=== PATIENT | male | born 1960 | race Caucasian/White ===

== ENCOUNTER 2022-02-28 12:46 | Inpatient (IN) | payer OTHER ==
[~2022-02-28] VITALS: Ht 180.3 cm; Wt 82.0 kg
--- NOTE | 2022-02-28 13:10 | ED General ---
General Stated Complaint: R SHOULDER PAIN Source of Information: Patient Exam Limitations: No Limitations History of Present Illness Date Seen by Provider: February 28, 2022 Time Seen by Provider: 13:10 Initial Comments Patient is a 61-year-old male with a history of lung cancer with metastasis to the bone who presents ED for pain control. Dr. Orellana patient hospice provider called to the ER recommending admission and discuss HOURLY SHIFT MANAGER pump for better pain control. Currently on morphine, and oxycodone, Flexeril, fentanyl without much pain improvement. Pain to his mid upper back with radiation weakness to the right arm. Described as sharp pain. Currently being managed by Dr. Aviles oncology at [place] and has had 5 sessions of radiation. Not currently on chemotherapy. Patient has no fever, vomiting, diarrhea, chest pain, shortness of breath. Allergies and Home Medications Allergies Coded Allergies: No Known Drug Allergies (Unverified , 02/28/22) Patient Home Medication List Home Medication List Reviewed: Yes Review of Systems Review of Systems Constitutional: No chills, No diaphoresis, No malaise, No weakness EENTM: No blurred vision, No double vision Respiratory: No cough, No dyspnea on exertion Cardiovascular: No chest pain Gastrointestinal: No abdominal pain, No diarrhea, No nausea, No vomiting Genitourinary: No decreased output, No discharge Musculoskeletal: back pain; No joint pain; neck pain Skin: No change in color All Other Systems Reviewed Negative Unless Noted: Yes Physical Exam Vital Signs Vital Signs - First Documented 02/28/22 13:03 Temp 35.8 Pulse 112 Resp 18 B/P (MAP) 137/89 (105) Pulse Ox 99 O2 Delivery Room Air Capillary Refill : Height, Weight, BMI Height: '" Weight: lbs. oz. kg; BMI Method: General Appearance: No Apparent Distress, WD/WN Eyes: Bilateral Eye Normal Inspection, Bilateral Eye PERRL, Bilateral Eye EOMI HEENT: PERRL/EOMI, TMs Normal, Normal ENT Inspection Neck: Full Range of Motion, Normal Inspection, Supple, Other (Cervical midline tenderness) Respiratory: Chest Non Tender, Lungs Clear, Normal Breath Sounds, No Accessory Muscle Use, No Respiratory Distress Cardiovascular: Regular Rate, Rhythm, No Edema, No Gallop, No JVD Gastrointestinal: Normal Bowel Sounds, No Organomegaly, No Pulsatile Mass, Non Tender Back: Vertebral Tenderness (Thoracic and cervical midline tenderness.) Extremity: Other (Principal Investigator strength right hand 4 out of 5 with cotton dispatcher strength left hand 5 out of 5. Normal active range of motion right arm) Neurologic/Psychiatric: Alert, Oriented x3, No Motor/Sensory Deficits, Normal Mood/Affect, Other (Neurovascular intact right arm) Skin: Normal Color, Warm/Dry Progress/Results/Core Measures Suspected Sepsis SIRS Temperature: Pulse: Respiratory Rate: Laboratory Tests 02/28/22 13:40: White Blood Count 9.7 Blood Pressure / Mean: Laboratory Tests 02/28/22 13:40: Creatinine 1.18, Platelet Count 160, Total Bilirubin 0.6 Results/Orders Lab Results Laboratory Tests Test 02/28/22 13:40 Range/Units White Blood Count 9.7 4.3-11.0 10^3/uL Red Blood Count 3.45 L 4.30-5.52 10^6/uL Hemoglobin 10.3 L 13.3-17.7 g/dL Hematocrit 30 L 40-54 % Mean Corpuscular Volume 88 80-99 fL Mean Corpuscular Hemoglobin 30 25-34 pg Mean Corpuscular Hemoglobin Concent 34 32-36 g/dL Red Cell Distribution Width 18.3 H 10.0-14.5 % Platelet Count 160 130-400 10^3/uL Mean Platelet Volume 8.4 L 9.0-12.2 fL Immature Granulocyte % (Auto) 6 % Neutrophils (%) (Auto) 76 H 42-75 % Lymphocytes (%) (Auto) 11 L 12-44 % Monocytes (%) (Auto) 6 0-12 % Eosinophils (%) (Auto) 1 0-10 % Basophils (%) (Auto) 0 0-10 % Neutrophils # (Auto) 7.3 1.8-7.8 10^3/uL Lymphocytes # (Auto) 1.1 1.0-4.0 10^3/uL Monocytes # (Auto) 0.6 0.0-1.0 10^3/uL Eosinophils # (Auto) 0.1 0.0-0.3 10^3/uL Basophils # (Auto) 0.0 0.0-0.1 10^3/uL Immature Granulocyte # (Auto) 0.6 H 0.0-0.1 10^3/uL Percent Immature Platelet Fraction 1.1 0.0-7.6 % Sodium Level 138 135-145 MMOL/L Potassium Level 4.2 3.6-5.0 MMOL/L Chloride Level 99 98-107 MMOL/L Carbon Dioxide Level 27 21-32 MMOL/L Anion Gap 12 5-14 MMOL/L Blood Urea Nitrogen 31 H 7-18 MG/DL Creatinine 1.18 0.60-1.30 MG/DL Estimat Glomerular Filtration Rate 71 BUN/Creatinine Ratio 26 Glucose Level 134 H 70-105 MG/DL Calcium Level 11.1 H 8.5-10.1 MG/DL Corrected Calcium 11.0 H 8.5-10.1 MG/DL Total Bilirubin 0.6 0.1-1.0 MG/DL Aspartate Amino Transf (AST/SGOT) 15 5-34 U/L Alanine Aminotransferase (ALT/SGPT) 33 0-55 U/L Alkaline Phosphatase 122 40-136 U/L Total Protein 7.9 6.4-8.2 GM/DL Albumin 4.1 3.2-4.5 GM/DL My Orders Orders - [facility] Cbc With Automated Diff (02/28/22 13:08) Comprehensive Metabolic Panel (02/28/22 13:08) Hydromorphone Injection (Dilaudid Inject (02/28/22 13:15) Ed Admission (Communication) (02/28/22 13:17) Ondansetron Injection (Zofran Injectio (02/28/22 14:00) Hydromorphone Injection (Dilaudid Inject (02/28/22 14:15) Medications Given in ED Current Medications Medications Dose Ordered Sig/Elsa Route Start Time Stop Time Status Last Admin Dose Admin Hydromorphone HCl 1 mg ONCE ONCE IV 02/28/22 13:15 02/28/22 13:16 DC 02/28/22 13:45 1 MG Hydromorphone HCl 1 mg ONCE ONCE IV 02/28/22 14:15 02/28/22 14:16 DC 02/28/22 14:13 1 MG Ondansetron HCl 4 mg ONCE ONCE IVP 02/28/22 14:00 02/28/22 14:01 DC 02/28/22 13:53 4 MG Vital Signs/I&O 02/28/22 02/28/22 13:03 14:16 Temp 35.8 Pulse 112 107 Resp 18 B/P (MAP) 137/89 (105) 123/76 Pulse Ox 99 96 O2 Delivery Room Air Room Air Capillary Refill : Departure Communication (Admissions) Time/Spoke to Admitting Phy: 13:16 Patient was discussed with Dr. Rossi who accepts patient for pain control and for pain pump.. Currently on hospice secondary to lung cancer with metastasis to the bone. Dr. Orellana did not recommend any further imaging at this time of his back. Patient was given 2 mg of IV Dilaudid with significant improvement of his pain. Impression Primary Impression: Lung cancer metastatic to bone Additional Impression: Intractable back pain Disposition: ADMITTED INPATIENT Condition: Stable Admissions Decision to Admit Reason: Admit from ER (General) Decision to Admit/Date: February 28, 2022 Time/Decision to Admit Time: 13:16 Departure-Patient Inst. Referrals: NO,LOCAL PHYSICIAN (PCP/Family) Primary Care Physician [facility] TATE February 28, 2022 13:10
[2022-02-28] MEDS ORDERED: HYDROmorphone 2 MG/ML VIAL (DILAUDID) IV ONE ×2 (13:15→14:15)
[2022-02-28 13:55] LABS: HEMATOCRIT 30 % (40-54); MONOCYTES % (AUTO) 6 % (0-12)
[2022-02-28 13:57] LABS: BASOPHILS % (AUTO) 0 % (0-10); EOSINOPHILS # (AUTO) 0.1 10^3/uL (0.0-0.3); EOSINOPHILS % (AUTO) 1 % (0-10); HEMOGLOBIN 10.3 g/dL (13.3-17.7); LYMPHOCYTES # (AUTO) 1.1 10^3/uL (1.0-4.0); LYMPHOCYTES % (AUTO) 11 % (12-44); MEAN CORPUSCULAR HEMOGLOBIN 30 pg (25-34); MEAN CORPUSCULAR HGB CONC 34 g/dL (32-36); MEAN CORPUSCULAR VOLUME 88 fL (80-99); MEAN PLATELET VOLUME 8.4 fL (9.0-12.2); MONOCYTES # (AUTO) 0.6 10^3/uL (0.0-1.0); NEUTROPHILS # (AUTO) 7.3 10^3/uL (1.8-7.8); NEUTROPHILS % (AUTO) 76 % (42-75); PLATELET COUNT 160 10^3/uL (130-400); WHITE BLOOD COUNT 9.7 10^3/uL (4.3-11.0)
[2022-02-28] MEDS ORDERED: ONDANSETRON 4 MG/2 ML (SDV) Z0FRAN IVP ONE (14:00)
[2022-02-28 14:07] LABS: ALBUMIN 4.1 GM/DL (3.2-4.5); POTASSIUM 4.2 MMOL/L (3.6-5.0)
[2022-02-28 14:09] LABS: CALCIUM 11.1 MG/DL (8.5-10.1)
[2022-02-28 14:10] LABS: TOTAL PROTEIN 7.9 GM/DL (6.4-8.2)
[2022-02-28 14:11] LABS: BILIRUBIN,TOTAL 0.6 MG/DL (0.1-1.0)
[2022-02-28 14:14] LABS: CREATININE SERUM 1.18 MG/DL (0.60-1.30)
[2022-02-28] MEDS ORDERED: PHARMACY TO DOSE PO SCH (16:00)
[2022-02-28] MEDS ORDERED: LACTULOSE SYRUP 10GM/15ML (ENULOSE) 30ML UDC PO PRN (16:00)
[2022-02-28] MEDS ORDERED: CALCIUM CARBONATE 500 MG (TUMS) TAB.CHEW PO PRN (16:00)
[2022-02-28] MEDS ORDERED: diphenhydrAMINE 50 MG/ML INJ (BENADRYL) IV PRN (16:00)
[2022-02-28] MEDS ORDERED: MELATONIN 3 MG TABLET PO PRN (16:00)
[2022-02-28] MEDS ORDERED: METOCLOPRAMIDE INJ 10 MG/2 ML (REGLAN) IV PRN (16:00)
[2022-02-28] MEDS ORDERED: NALOXONE 0.4 MG/ML 1 ML (NARCAN) VIAL IV PRN (16:00)
[2022-02-28] MEDS ORDERED: polyethylene glycoL POWDER 17 GM (MIRALAX) PACK PO PRN (16:00)
[2022-02-28] MEDS ORDERED: ONDANSETRON 4 MG/2 ML (SDV) Z0FRAN IV PRN (16:00)
[2022-02-28] MEDS: NS IV 1000 ML 1,000 ML IV SCH (16:59)
[2022-02-28 17:02] VITALS: BP 123/76
[2022-02-28] MEDS ORDERED: RT-ALBUTEROL SULF 2.5 MG/3 ML PRE-MIX VIAL INH PRN (17:15)
[2022-02-28 19:12] VITALS: BP 121/79
[2022-02-28] MEDS: SENNOSIDES 8.6 MG (SENOKOT) TAB PO SCH (20:26)
[2022-02-28] MEDS: DOCUSATE SODIUM 100 MG (COLACE) CAP PO SCH (20:26)
[2022-02-28] MEDS: HYDROmorphone PCA 20 MG/100 ML NS IV PRN (21:07)
[2022-02-28 23:38] VITALS: BP 122/65
[2022-03-01 04:19] VITALS: BP 134/82
[2022-03-01 07:16] VITALS: BP 147/90
[2022-03-01] MEDS: SENNOSIDES 8.6 MG (SENOKOT) TAB PO SCH ×2 (08:11→19:43)
[2022-03-01] MEDS: DOCUSATE SODIUM 100 MG (COLACE) CAP PO SCH ×2 (08:11→19:43)
[2022-03-01] MEDS ORDERED: oxyCODONE ER 20 MG (OxyCONTIN CR) TAB PO SCH (09:15)
[2022-03-01] MEDS ORDERED: FENT1PAT11 (09:16)
[2022-03-01] MEDS ORDERED: OXYC20TA3 PO (09:16)
[2022-03-01] MEDS ORDERED: FENT1PAT9 (09:16)
[2022-03-01] MEDS: fentaNYL PATCH 100 MCG (DURAGESIC) TD SCH (09:33)
[2022-03-01] MEDS: fentaNYL PATCH 50 MCG (DURAGESIC) TD SCH (09:33)
--- NOTE | 2022-03-01 10:02 | History & Physical-Hospitalist ---
History of Present Illness HPI/Chief Complaint Patient is a 61-year-old male with past medical history of metastatic lung cancer who presented to the ER due to intractable pain. He is a patient of hospice come [facility] and had previously been treated with multiple oral options and transdermal fentanyl patches for pain control without adequate relief. He does report a history of drug addiction in his remote past. He was previously on hydrocodone and increase to oxycodone and OxyContin when that quit working. Recently they had placed a fentanyl patch which worked for a while but now he is having increasing pain in his right groin and right shoulder. He was admitted overnight for a Dilaudid CHARGE OPERATOR and had adequate control overnight but this morning is very uncomfortable. Discussed plan to replace fentanyl patch and increase CHARGE OPERATOR dosing if needed. Source: patient Date Seen 03/01/22 Time Seen by a Provider: 09:15 Attending Physician No,Local Physician PCP Admitting Physician: Licha Rossi MD Attending Physician: Licha Rossi MD Referring Physician Date of Admission February 28, 2022 at 13:18 Home Medications & Allergies Home Medications Reviewed patient Home Medication Reconciliation performed by pharmacy medication reconciliations coordinate measuring machine technician and/or nursing. Patients Allergies have been reviewed. Allergies Allergies Coded Allergies No Known Drug Allergies (Unverified02/28/22) Past Yxsuxfs-Btkyvq-[id number] Hx Patient Social History Tobacco Use?: Yes Tobacco type used: Cigarettes Smoking Status: Current Everyday Smoker Smokeless Tobacco Frequency: Never a User Use of E-Cig and/or Vaping dev: No Substance use?: No (history of abuse) Substance type: Marijuana Substance frequency: Daily Alcohol Use?: Yes Alcohol type: Beer Alcohol Frequency: Couple times a week Pt feels they are or have been: No Immunizations Up To Date First/Initial COVID19 Vaccinat: N/A Second COVID19 Vaccination Magdi: N/A Tetanus Booster (TDap): Unknown Hepatitis A: No Hepatitis B: No Current Status Advance Directives: Yes Advance Directive Location: Home Communicates: Verbally Primary Language: [place] Preferred Spoken Language: [place] Is interpretation needed?: No Implanted or Applied Medical D: None Past Medical History Lung Did You Recieve Any Treatments: Yes Family Medical History Reviewed Nursing Family Hx No Pertinent Family Hx Review of Systems Constitutional: No chills, No fever EENTM: no symptoms reported Respiratory: no symptoms reported Cardiovascular: no symptoms reported Gastrointestinal: No constipation Genitourinary: no symptoms reported Musculoskeletal: see HPI, back pain, joint pain Skin: no symptoms reported Psychiatric/Neurological: No Symptoms Reported Physical Exam Physical Exam Vital Signs Vital Signs - First Documented 02/28/22 03/01/22 13:03 08:29 Temp 35.8 Pulse 112 Resp 18 B/P (MAP) 137/89 (105) Pulse Ox 99 O2 Delivery Room Air O2 Flow Rate 0.00 Capillary Refill : Less Than 3 Seconds Height, Weight, BMI Height: '" Weight: lbs. oz. kg; 25.22 BMI Method: General Appearance: No Apparent Distress, WD/WN HEENT: PERRL/EOMI, Moist Mucous Membranes Respiratory: Lungs Clear, No Accessory Muscle Use, No Respiratory Distress Cardiovascular: Regular Rate, Rhythm, No Murmur Gastrointestinal: Normal Bowel Sounds, Non Tender, Soft Extremity: Normal Inspection, No Pedal Edema Neurologic/Psychiatric: Alert, Oriented x3, Normal Mood/Affect Results Results/Procedures Labs Patient resulted labs reviewed. Assessment/Plan Admission Diagnosis Intractable pain Admission Status: Inpatient Order (span 2 midnights) Reason for Inpatient Admission: Gip admission for uncontrolled pain and symptom management Assessment and Plan Intractable pain from bony mets Metastatic lung cancer Hospice patient Failed outpatient management with oral oxycodone, morphine, and fentanyl patch Dilaudid CHARGE OPERATOR started, titrate up to symptom control Fentanyl patch replaced DC Oxycontin as has tried before with no help Discussed with RN and will maintain fentanyl patch and just increase CHARGE OPERATOR to leave just one variable Discussed yesterday with Dr Orellana- hospice [facility] medical transcription supervisor, will plan to for CHARGE OPERATOR at home upon discharge Diagnosis/Problems Diagnosis/Problems (1) Admission for hospice care (2) Inadequate pain control (3) Lung cancer metastatic to bone (4) Intractable back pain Status: Acute LICHA ROSSI MD March 01, 2022 10:02
[2022-03-01 10:24] VITALS: BP 144/81
[2022-03-01] MEDS: HYDROmorphone PCA 20 MG/100 ML NS IV PRN ×3 (10:40→19:42)
[2022-03-01] MEDS: SENNA W/DOCUSATE (SENOKOT S) TABLET PO SCH (10:44)
[2022-03-01 11:29] VITALS: BP 115/64
[2022-03-01] MEDS ORDERED: IBUPROFEN TABLET 200 MG TAB PO ONE (14:57)
[2022-03-01] MEDS: NS IV 1000 ML 1,000 ML IV SCH (15:02)
[2022-03-01 15:26] VITALS: BP 137/83
[2022-03-01] MEDS ORDERED: NALO25TA PO (15:48)
[2022-03-01] MEDS ORDERED: MORP100S7 PO (15:48)
[2022-03-01] MEDS ORDERED: OXYC5TAB PO (15:48)
[2022-03-01] MEDS ORDERED: DEXA4TAB PO (15:48)
[2022-03-01] MEDS ORDERED: METF-397 PO (15:48)
[2022-03-01] MEDS ORDERED: PANT40TA52 PO (15:48)
[2022-03-01] MEDS ORDERED: TMSL.4C PO (15:48)
[2022-03-01] MEDS ORDERED: ONDA4TAB11 SL (15:48)
[2022-03-01] MEDS ORDERED: LORAZ30SOL PO (15:48)
[2022-03-01] MEDS ORDERED: LISI10TA25 PO (15:48)
[2022-03-01] MEDS ORDERED: DIAZ5TAB49 PO (15:48)
[2022-03-01] MEDS ORDERED: AMLO5TAB4 PO (15:48)
[2022-03-01] MEDS ORDERED: IBUPROFEN 800 MG (MOTRIN) TAB PO SCH (18:00)
[2022-03-01 19:29] VITALS: BP 131/76
[2022-03-02 00:18] VITALS: BP 131/76
[2022-03-02] MEDS: HYDROmorphone PCA 20 MG/100 ML NS IV PRN ×6 (01:51→23:03)
[2022-03-02 04:13] VITALS: BP 129/77
[2022-03-02] MEDS ORDERED: HYDROmorphone (DILAUDID) 4 MG TAB PO PRN (05:15)
[2022-03-02 07:34] VITALS: BP 130/79
[2022-03-02] MEDS: DOCUSATE SODIUM 100 MG (COLACE) CAP PO SCH ×2 (08:25→20:01)
[2022-03-02] MEDS: SENNOSIDES 8.6 MG (SENOKOT) TAB PO SCH ×2 (08:25→20:02)
[2022-03-02] MEDS: IBUPROFEN 800 MG (MOTRIN) TAB PO PRN ×2 (08:35→17:46)
[2022-03-02] MEDS: SENNA W/DOCUSATE (SENOKOT S) TABLET PO SCH (09:18)
[2022-03-02] MEDS ORDERED: HYDROmorphone 2 MG/ML VIAL (DILAUDID) ONE (10:49)
[2022-03-02] MEDS ORDERED: HYDROmorphone 2 MG/ML VIAL (DILAUDID) IV ONE (11:00)
[2022-03-02] MEDS ORDERED: [UNRECOGNIZED DRUG - CODE] IV (11:26)
[2022-03-02 11:34] VITALS: BP 152/82
--- NOTE | 2022-03-02 11:35 | CONSULTATION REPORT ---
DATE OF SERVICE: 03/02/2022 HISTORY OF PRESENT ILLNESS: The patient is a 61-year-old male with a history of metastatic lung cancer, who presented to the Emergency Department due to intractable pain. The patient is on hospice and has been treated with multiple oral pain medications as well as transdermal fentanyl patch without adequate relief. He does have a history of a drug addiction in the remote past and does have a very poor peripheral venous circulation. He was admitted and started on Dilaudid SUPPLY CHAIN ASSISTANT; however, has lost his IV access. PAST MEDICAL HISTORY: History of metastatic lung cancer, hypertension, gastroesophageal reflux disease, benign prostatic hypertrophy. PAST SURGICAL HISTORY: None known. ALLERGIES: No known drug allergies. MEDICATIONS: Amlodipine 5 mg daily, dexamethasone 4 mg daily, diazepam 5 mg daily, fentanyl patch 100 mcg every third day, lisinopril 10 mg daily, lorazepam 2 mg q.4 hours p.r.n., morphine 20 mg q.2 hours p.r.n., Zofran 4 mg q.6 hours p.r.n., oxycodone 5 mg q.4 hours p.r.n., Protonix 40 mg daily, tamsulosin 0.4 mg b.i.d. SOCIAL HISTORY: Positive smoke. Positive marijuana. He does drink alcohol a few times a week. FAMILY HISTORY: Noncontributory. VITAL SIGNS: Temperature 36.4, blood pressure 130/79, pulse 93, respirations 20, pulse ox 96% on room air. REVIEW OF SYSTEMS: A well-nourished male currently with pain secondary to a bone metastasis. He is not experiencing any shortness of breath or any new cough or sputum production. Intermittent episodes of nausea, no vomiting, chronic constipation, no red blood per rectum, no dark tarry stools. No fever, chills with some weight loss in the past few months. PHYSICAL EXAMINATION: CHEST: Scattered wheezes and rhonchi bilaterally. HEART: Regular, no murmurs. EXTREMITIES: No lower extremity edema, negative Homans sign. HEENT: No scleral icterus. NECK: No cervical lymphadenopathy. ABDOMEN: Soft, nontender, nondistended. SKIN: Warm, dry. ASSESSMENT AND PLAN: A 61-year-old male with a metastatic lung cancer with uncontrolled pain with poor peripheral venous circulation and will require IV access for IV pain medication and we will proceed with placement of a central venous catheter. Job ID: [id number] DocumentID: [id number] Dictated Date: 03/02/2022 10:28:20 Precinct Commanding Officer Date: 03/02/2022 11:34:07 Dictated By: TYLER CRUMP MD [facility]
--- NOTE | 2022-03-02 11:44 | Diagnostic Imaging Report ---
CLINICAL INDICATIONS: Patient with central line placement. EXAM: Portable chest x-ray upright view. COMPARISON: None. FINDINGS: Left PICC line is seen with tip overlying the upper superior region. Lungs/pleura: There are patchy opacities involving the periphery of the right upper lobe and left lung. There is no pneumothorax. There is no pleural effusion. Mediastinum: Unremarkable. Pulmonary vasculature: Unremarkable. Heart: Unremarkable. Bones/extrathoracic soft tissue: There are degenerative spurs involving the spine. IMPRESSION: 1: Left PICC line is seen with tip overlying the upper superior vena cava. 2: There are patchy airspace opacities involving the peripheral right upper lobe and left lung. These findings may be related to infectious inflammatory process. Comparison to prior chest x-rays, if available would help better evaluate. Dictated by: Dictated on workstation # [id number]
--- NOTE | 2022-03-02 12:05 | Progress Note - Hospitalist ---
Subjective HPI/CC On Admission Date Seen by Provider: March 02, 2022 Patient is a 61-year-old male with past medical history of metastatic lung cancer who presented to the ER due to intractable pain. He is a patient of [facility] and had previously been treated with multiple oral options and transdermal fentanyl patches for pain control without adequate relief. He does report a history of drug addiction in his remote past. He was previously on hydrocodone and increase to oxycodone and OxyContin when that quit working. Recently they had placed a fentanyl patch which worked for a while but now he is having increasing pain in his right groin and right shoulder. He was admitted overnight for a Dilaudid CLINICAL ADVISOR and had adequate control overnight but this morning is very uncomfortable. Discussed plan to replace fentanyl patch and increase CLINICAL ADVISOR dosing if needed. Subjective/Events-last exam Patient reports doing well. Pain is now controlled with current CLINICAL ADVISOR settings. He is actually requesting discharge home. We discussed the complicating factors of arranging CLINICAL ADVISOR and home on a holiday weekend but that if hospice is able to get DME and prescription filled I would be okay with discharge. Objective Exam Vital Signs Vital Signs Date Time Temp Pulse Resp B/P (MAP) Pulse Ox O2 Delivery O2 Flow Rate FiO2 03/02/22 11:34 36.0 99 20 152/82 (105) 97 Room Air 03/02/22 02:07 0.00 Capillary Refill : Less Than 3 Seconds General Appearance: No Apparent Distress, WD/WN Respiratory: Lungs Clear, No Respiratory Distress Cardiovascular: Regular Rate, Rhythm, No Murmur Neurologic/Psychiatric: Alert, Oriented x3 Results/Procedures Lab Patient resulted labs reviewed. Assessment/Plan Assessment and Plan Assess & Plan/Chief Complaint Intractable pain from bony mets Metastatic lung cancer Hospice patient Failed outpatient management with oral oxycodone, morphine, and fentanyl patch Dilaudid CLINICAL ADVISOR with adequate control Fentanyl patch in place Discussed yesterday with Dr Orellana- hospice [facility] medical data entry clerk, will plan to for CLINICAL ADVISOR at home upon discharge Dr Russo consulted for line placement as he lost access overnight and is a hard stick Diagnosis/Problems Diagnosis/Problems (1) Admission for hospice care (2) Inadequate pain control (3) Lung cancer metastatic to bone (4) Intractable back pain Status: Acute MARJORIE SOUSA MD March 02, 2022 12:05
[2022-03-02] MEDS: ACETAMINOPHEN 325 MG TABLET PO PRN ×2 (12:45→20:02)
[2022-03-02] MEDS ORDERED: PANTOPRAZOLE 40 MG (PROTONIX) TAB PO ONE ×2 (13:00→15:30)
--- NOTE | 2022-03-02 13:11 | OPERATIVE REPORT ---
DATE OF SERVICE: 03/02/2022 ADMITTING PHYSICIAN: Dr. Rossi. PREPROCEDURE DIAGNOSIS: Metastatic lung cancer with uncontrolled pain. POSTOPERATIVE DIAGNOSIS: Metastatic lung cancer with uncontrolled pain. PROCEDURE: Placement of left subclavian central venous catheter. SURGEON: Tyler Crump MD CIRCULAR KNIFE CUTTER MACHINE: Lb Guerrero APRN ANESTHESIA: Local. ESTIMATED BLOOD LOSS: Minimal. FINDINGS: Catheter tip at superior vena caval -- right atrial junction. DISPOSITION: The patient tolerated the procedure well. INDICATIONS: The patient is a 61-year-old male diagnosed with a metastatic lung cancer in 10/2021. Since that time, he has had multiple issues with spinal and other bone pain. He was admitted due to uncontrolled pain at home. He has very poor peripheral venous circulation and will require IV pain medications including a COUPON AND BOND COLLECTION CLERK and will require a central venous catheter. DESCRIPTION OF PROCEDURE: Chest and neck were prepped and draped in standard surgical fashion. A 1% lidocaine was used to anesthetize the left subclavian region. The left subclavian vein was then cannulated withdrawing a venous blood and the guidewire was then inserted without any resistance. Cannulating needle removed and a skin incision was made using an 11 blade. A tract was then created using a venous dilator and through this opening, a triple lumen central venous catheter was placed over the guidewire using the Seldinger technique and the guidewire was removed. All three ports christy venous blood and saline pushed in without any resistance. Catheter was then sutured to the skin using 3-0 silk interrupted sutures. This was then cleaned and covered with Op-Site. The patient tolerated the procedure well. We will get a post-procedure chest x-ray. Job ID: [id number] DocumentID: [id number] Dictated Date: 03/02/2022 11:02:12 It Systems Engineer Date: 03/02/2022 13:11:01 Dictated By: TYLER CRUMP MD
[2022-03-02 16:04] VITALS: BP 143/84
[2022-03-02] MEDS: TAMSULOSIN 0.4 MG (FLOMAX) CAP PO SCH (17:40)
[2022-03-02 20:25] VITALS: BP 156/74
[2022-03-03] VITALS (9 sets, daily range): BP systolic 116–162; BP diastolic 69–85
[2022-03-03] MEDS: HYDROmorphone PCA 20 MG/100 ML NS IV PRN ×3 (03:09→10:07)
[2022-03-03] MEDS: IBUPROFEN 800 MG (MOTRIN) TAB PO PRN ×2 (08:25→20:09)
[2022-03-03] MEDS: PANTOPRAZOLE 40 MG (PROTONIX) TAB PO SCH (08:27)
[2022-03-03] MEDS: SENNOSIDES 8.6 MG (SENOKOT) TAB PO SCH ×2 (08:27→20:09)
[2022-03-03] MEDS: DOCUSATE SODIUM 100 MG (COLACE) CAP PO SCH ×2 (08:27→20:09)
[2022-03-03] MEDS: SENNA W/DOCUSATE (SENOKOT S) TABLET PO SCH (09:31)
[2022-03-03] MEDS ORDERED: NICOTINE 7 MG (NICODERM) PATCH TD ONE (10:30)
[2022-03-03] MEDS: LORazepam 0.5 MG (ATIVAN) TABLET PO PRN ×2 (11:24→20:09)
--- NOTE | 2022-03-03 12:19 | Progress Note - Hospitalist ---
Subjective HPI/CC On Admission Date Seen by Provider: March 03, 2022 Patient is a 61-year-old male with past medical history of metastatic lung cancer who presented to the ER due to intractable pain. He is a patient of [facility] and had previously been treated with multiple oral options and transdermal fentanyl patches for pain control without adequate relief. He does report a history of drug addiction in his remote past. He was previously on hydrocodone and increase to oxycodone and OxyContin when that quit working. Recently they had placed a fentanyl patch which worked for a while but now he is having increasing pain in his right groin and right shoulder. He was admitted overnight for a Dilaudid OUTSEWER and had adequate control overnight but this morning is very uncomfortable. Discussed plan to replace fentanyl patch and increase OUTSEWER dosing if needed. Subjective/Events-last exam Patient standing up in bed room and pacing. He states he feels very anxious and he thinks it may be time "to go" when asked what he meant by this he thinks that he may be dying. He is worried that if he closes his eyes he will quit breathing. Overnight he refused to wear his end-tidal monitoring but I explained again why we use that to ensure safety with OUTSEWER. Informed him I will decrease the dose on his OUTSEWER as well as his pain is controlled but we discussed how to balance pain and side effects. He and family discussed with hospice yesterday regarding plan for discharge and setting OUTSEWER up at home and they were told as well that it would be tomorrow at the earliest. Objective Exam Vital Signs Vital Signs Date Time Temp Pulse Resp B/P (MAP) Pulse Ox O2 Delivery O2 Flow Rate FiO2 03/04/22 13:33 36.4 20 03/04/22 11:57 97 116/61 (79) 93 Room Air 03/03/22 15:25 21 03/03/22 15:06 0.00 Capillary Refill : Less Than 3 Seconds General Appearance: No Apparent Distress, Anxious Respiratory: Lungs Clear Cardiovascular: Regular Rate, Rhythm Neurologic/Psychiatric: Alert, Oriented x3 Results/Procedures Lab Patient resulted labs reviewed. Assessment/Plan Assessment and Plan Assess & Plan/Chief Complaint Intractable pain from bony mets Metastatic lung cancer Hospice patient Failed outpatient management with oral oxycodone, morphine, and fentanyl patch Dilaudid OUTSEWER with pain control rated at 4-5 but worried he may quit breathing Encouraged him to comply with end tidal monitoring and will decrease continuous dose on OUTSEWER along with slightly lower dose on OUTSEWER dose We discussed the need to balance pain control with side effects of medications Seems very anxious so will trial low dose Ativan as well but warned of side effects of it as well, especially when used with opoids and again reminded him of need to comply with end tidal Fentanyl patch in place- replace tomorrow Discussed on admission with Dr Orellana- hospice [facility] biomedical specialist, will plan to for OUTSEWER at home upon discharge Central line placed Call out to hospice [facility] to discuss discharge planning, awaiting return call He requests ability to go out and smoke- told him the recommendation is that he not go but that he can signed a form acknowledging risks and we can't keep him in the room against his well I explained risks of going outside without monitoring including upto disability and and he expressed understanding as did family member at bedside Diagnosis/Problems Diagnosis/Problems (1) Admission for hospice care (2) Inadequate pain control (3) Lung cancer metastatic to bone (4) Intractable back pain Status: Acute MARJORIE SOUSA MD March 03, 2022 12:19
[2022-03-03] MEDS: ACETAMINOPHEN 325 MG TABLET PO PRN (14:52)
[2022-03-03] MEDS: CYCLOBENZAPRINE 10 MG (FLEXERIL) TAB PO PRN ×2 (14:52→23:40)
[2022-03-03] MEDS: TAMSULOSIN 0.4 MG (FLOMAX) CAP PO SCH (18:15)
[2022-03-04] MEDS: HYDROmorphone PCA 20 MG/100 ML NS IV PRN ×2 (03:32→13:33)
[2022-03-04 04:00] VITALS: BP 129/75
[2022-03-04] MEDS: IBUPROFEN 800 MG (MOTRIN) TAB PO PRN (06:46)
[2022-03-04] MEDS: CYCLOBENZAPRINE 10 MG (FLEXERIL) TAB PO PRN ×2 (06:47→16:10)
[2022-03-04 07:20] VITALS: BP 108/65
[2022-03-04] MEDS: fentaNYL PATCH 50 MCG (DURAGESIC) TD SCH (08:51)
[2022-03-04] MEDS: PANTOPRAZOLE 40 MG (PROTONIX) TAB PO SCH (08:51)
[2022-03-04] MEDS: SENNA W/DOCUSATE (SENOKOT S) TABLET PO SCH (08:51)
[2022-03-04] MEDS: DOCUSATE SODIUM 100 MG (COLACE) CAP PO SCH (08:51)
[2022-03-04] MEDS: SENNOSIDES 8.6 MG (SENOKOT) TAB PO SCH (08:51)
[2022-03-04] MEDS: fentaNYL PATCH 100 MCG (DURAGESIC) TD SCH (08:52)
[2022-03-04] MEDS ORDERED: NICOTINE 7 MG (NICODERM) PATCH TD SCH (09:00)
[2022-03-04] MEDS ORDERED: PATCH REMOVAL TP SCH ×3 (09:00)
[2022-03-04 11:57] VITALS: BP 116/61
[2022-03-04] MEDS ORDERED: [UNRECOGNIZED DRUG - CODE] IV (13:43)
--- NOTE | 2022-03-04 13:49 | Progress Note - Hospitalist ---
Subjective HPI/CC On Admission Date Seen by Provider: March 04, 2022 Time Seen by Provider: 13:48 Patient is a 61-year-old male with past medical history of metastatic lung cancer who presented to the ER due to intractable pain. He is a patient of [facility] and had previously been treated with multiple oral options and transdermal fentanyl patches for pain control without adequate relief. He does report a history of drug addiction in his remote past. He was previously on hydrocodone and increase to oxycodone and OxyContin when that quit working. Recently they had placed a fentanyl patch which worked for a while but now he is having increasing pain in his right groin and right shoulder. He was admitted overnight for a Dilaudid CAREER AGENT and had adequate control overnight but this morning is very uncomfortable. Discussed plan to replace fentanyl patch and increase CAREER AGENT dosing if needed. Subjective/Events-last exam Pt sleeping soundly. Family at bedside. No complaints. Hoping for hospice to get equipment so he can discharge. Objective Exam Vital Signs Vital Signs Date Time Temp Pulse Resp B/P (MAP) Pulse Ox O2 Delivery O2 Flow Rate FiO2 03/04/22 13:33 36.4 20 03/04/22 11:57 97 116/61 (79) 93 Room Air 03/03/22 15:25 21 03/03/22 15:06 0.00 Capillary Refill : Less Than 3 Seconds General Appearance: No Apparent Distress, WD/WN, Other (sleeping soundly) Respiratory: Lungs Clear, No Respiratory Distress Cardiovascular: Regular Rate, Rhythm, No Murmur Results/Procedures Lab Patient resulted labs reviewed. Assessment/Plan Assessment and Plan Assess & Plan/Chief Complaint Intractable pain from bony mets Metastatic lung cancer Hospice patient Failed outpatient management with oral oxycodone, morphine, and fentanyl patch Dilaudid CAREER AGENT with pain control - continues to refuse end tidal monitoring Fentanyl patch in place- replace tomorrow Discussed on admission with Dr Orellana- hospice [facility] medical staff assistant, will plan to for CAREER AGENT at home upon discharge RX in chart for CAREER AGENT meds, awaiting delivery from hospice Diagnosis/Problems Diagnosis/Problems (1) Admission for hospice care (2) Inadequate pain control (3) Lung cancer metastatic to bone (4) Intractable back pain Status: Acute MARJORIE SOUSA MD March 04, 2022 13:49
[2022-03-04 15:55] VITALS: BP 125/74
[2022-03-04] MEDS: NS IV 1000 ML 1,000 ML IV SCH (16:09)
--- NOTE | 2022-03-04 18:28 | Discharge Inst-Simple/Standard ---
Discharge Inst-Standard Patient Instructions/Follow Up Plan of Care/Instructions/FU: Please continue to take your medications as written. Please follow up with [facility] to continue care. Activity as Tolerated: Yes Discharge Diet: No Restrictions Return to The Hospital For: Worsening pain, shortness of breath, uncontrolled symptoms, if you feel you are gettting worse. MARJORIE SOUSA MD March 04, 2022 18:28
[2022-03-04] MEDS: TAMSULOSIN 0.4 MG (FLOMAX) CAP PO SCH (18:36)
== END 2022-03-04 18:30 | disposition hospice, home (50) | DRG 948 ==
LOC: ER 12:49 → 4TH 13:18
PROVIDERS: ADMIT Family Medicine; ATTEND Family Medicine
PROC: 02HV33Z Insertion of Infusion Device into Superior Vena Cava, Percutaneous Approach (ICD-10-PCS; principal; 2022-03-02)
DX: G89.3 Neoplasm related pain (acute) (chronic) (principal); C79.51 Secondary malignant neoplasm of bone; C34.90 Malignant neoplasm of unspecified part of unspecified bronchus or lung; F17.210 Nicotine dependence, cigarettes, uncomplicated; F12.90 Cannabis use, unspecified, uncomplicated; I10 Essential (primary) hypertension; K21.9 Gastro-esophageal reflux disease without esophagitis; N40.0 Benign prostatic hyperplasia without lower urinary tract symptoms; Z66 Do not resuscitate; Z28.310 Unvaccinated for COVID-19; Z28.9 Immunization not carried out for unspecified reason
CPT/HCPCS: 36415; 71045; 80053; 85025; 94760; 99284

== ENCOUNTER 2022-03-12 06:22 | Emergency (ER) | payer OTHER ==
[~2022-03-12 06:22] MED LIST: AMLO5TAB4 PO; DEXA4TAB PO; DIAZ5TAB49 PO; FENT1PAT11; FENT1PAT9; LISI10TA25 PO; LORAZ30SOL PO; METF-397 PO; MORP100S7 PO; NALO25TA PO; ONDA4TAB11 SL; OXYC20TA3 PO; OXYC5TAB PO; PANT40TA52 PO; TMSL.4C PO; [UNRECOGNIZED DRUG - CODE] IV
[2022-03-12] MEDS ORDERED: KETAMINE 50 MG/5 ML SYRINGE IV ONE (06:30)
--- NOTE | 2022-03-12 06:38 | ED General ---
General Stated Complaint: DILAUDID ARTS THERAPIST PUMP BUT STILL HAVING ALOT OF PAIN Source of Information: Patient, EMS Exam Limitations: No Limitations History of Present Illness Date Seen by Provider: Mar 12, 2022 Time Seen by Provider: 06:16 Initial Comments Patient to the ER by [facility] with chief complaint that he has uncontrollable pain. He has a history of lung cancer with bone mets and a Dilaudid pump. He is on hospice. He is a DNR on palliative care and they cannot get his pain under control despite a Dilaudid pump that delivers 1 mg/h with the ability to get another milligram every 10 minutes. The patient is nearly somnolent and when asked how much pain he has he rates it as a 5 out of 10. Asked what he wants to do for this and he says fix it. When asked if he means to fix his pain he says yes. EMS states they pushed a pump twice since they arrived. Allergies and Home Medications Allergies Coded Allergies: No Known Drug Allergies (Unverified , 02/28/22) Patient Home Medication List Home Medication List Reviewed: Yes Diazepam (Diazepam) 5 Mg Tablet, 5 MG PO HS, (Reported) Entered as Reported by: MAY RODRIGUEZ on 03/01/22 1548 Fentanyl (Fentanyl Patch 50 MCG) 50 Mcg/Hour Patch.td72, 50 MCG Q72HR, ( Reported) Entered as Reported by: MAY RODRIGUEZ on 03/01/22 0916 Fentanyl (Fentanyl Patch 100 MCG) 100 Mcg/Hour Patch.td72, 100 MCG Q72H, (Reported) Entered as Reported by: MAY RODRIGUEZ on 03/01/22 0916 Hydromorphone HCl/Pf (Hydromorphone 50 mg/5 ml Vial) 10 Mg/Ml Vial, 0 MG IV PRN PRN for PAIN-SEE DOSE INSTRUCTIONS Prescribed by: MARJORIE SOUAS on 03/04/22 1343 Lorazepam (Lorazepam) 2 Mg/Ml Oral.conc, 2 MG PO 2-4hr, (Reported) Entered as Reported by: MAY RODRIGUEZ on 03/01/22 1548 Naloxegol Oxalate (Movantik) 25 Mg Tablet, 12.5 MG PO DAILY, (Reported) Entered as Reported by: MAY RODRIGUEZ on 03/01/22 1548 Ondansetron (Ondansetron Odt) 4 Mg Tab.rapdis, 4 MG SL Q6H PRN for NAUSEA/VOMITING, (Reported) Entered as Reported by: MAY RODRIGUEZ on 03/01/221547 Pantoprazole Sodium (Pantoprazole Sodium) 40 Mg Tablet.dr, 40 MG PO DAILY, (Reported) Entered as Reported by: MAY RODRIGUEZ on 03/01/221547 Tamsulosin HCl (Flomax) 0.4 Mg Cap, 0.4 MG PO BID, (Reported) Entered as Reported by: MAY RODRIGUEZ on 03/01/221547 Review of Systems Review of Systems Constitutional: No chills, No diaphoresis EENTM: No ear discharge, No ear pain Respiratory: No cough, No short of breath Cardiovascular: No chest pain, No palpitations Gastrointestinal: No abdominal pain, No nausea, No vomiting Genitourinary: No discharge, No dysuria Musculoskeletal: No back pain, No joint pain All Other Systems Reviewed Negative Unless Noted: Yes Past Xcflrrv-Stfsod-Mlivgk Hx Patient Social History Tobacco Use?: No Use of E-Cig and/or Vaping dev: No Immunizations Up To Date First/Initial COVID19 Vaccinat: N/A Second COVID19 Vaccination Magdi: N/A Third COVID19 Vaccination Date: N/A Past Medical History Surgery/Hospitalization HX: GLASSES AND WALKER N0T WITH PATIENT ON ARRIVAL TO [facility] SHELL BACK BRACE LUNG CANCER WITH METASTISIS TO BONE Lung Did You Recieve Any Treatments: Yes Family Medical History No Pertinent Family Hx Physical Exam Vital Signs Vital Signs - First Documented Capillary Refill : Height, Weight, BMI Height: '" Weight: lbs. oz. kg; 25.22 BMI Method: General Appearance: WD/WN, Mild Distress Eyes: Bilateral Eye Normal Inspection, Bilateral Eye PERRL, Bilateral Eye EOMI HEENT: PERRL/EOMI (2 mm reactive), Normal ENT Inspection, Pharynx Normal Neck: Full Range of Motion, Normal Inspection Respiratory: No Accessory Muscle Use, No Respiratory Distress Cardiovascular: Regular Rate, Rhythm, Normal Peripheral Pulses Gastrointestinal: Non Tender, Soft Extremity: Normal Range of Motion, Slow Capillary Refill Neurologic/Psychiatric: Alert, Oriented x3 Skin: Other (Several IV insertion sites on bilateral arms.) Progress/Results/Core Measures Suspected Sepsis SIRS Temperature: Pulse: Respiratory Rate: Blood Pressure / Mean: Results/Orders My Orders Orders - KATHARINA BLEDSOE Ketamine Syringe (Ketamine Syringe) (03/12/22 06:30) Medications Given in ED Current Medications Medications Dose Ordered Sig/Elsa Route Start Time Stop Time Status Last Admin Dose Admin Ketamine HCl 25 mg ONCE ONCE IV 03/12/22 06:30 03/12/22 06:33 DC 03/12/22 06:57 25 MG Vital Signs/I&O 03/12/22 03/12/22 03/12/22 06:25 06:25 09:05 Temp 37.0 Pulse 112 82 Resp 14 16 B/P (MAP) 172/108 (129) 130/77 Pulse Ox 95 95 O2 Delivery Room Air Room Air Room Air Capillary Refill : Progress Note #1: Time: 06:39 Progress Note The patient appears to be well narcotize and does not even rate his pain very high at this time. The Dilaudid seems to be working but he still wants something else for pain so we will give him a dose of ketamine slow push over about 15 minutes IV. Plan is then to transition back home. Progress Note #2: Time: 07:52 Progress Note Patient states his pain is feeling much better and he is ready to go home. His mother is here and we have answered her questions. We have paged the hospice nurse. The mother says she can get him home if we can help him get in the car. Wanted to discuss the possibility using ketamine for his intermittent pain management with hospice. Progress Note #3: Time: 16:22 Progress Note Spoke to the hospice nurse on duty and she is familiar with the patient. She informs us he also has 150 mcg per 24-hour fentanyl patch on. We did discuss both of our concerns and she thought that ketamine might be a good choice. We recommended 25 mg IM could be given probably as frequently as every 6 if needed but would recommend maybe just once a day to start. Departure Impression Primary Impression: Inadequate pain control Disposition: 01 HOME, SELF-CARE Condition: Stable Departure-Patient Inst. Decision time for Depature: 08:02 Referrals: NO,LOCAL PHYSICIAN (PCP/Family) Primary Care Physician Patient Instructions: Acute Pain, Adult Add. Discharge Instructions: I spoke to [facility] nurse and recommended ketamine as a adjunct maybe once a day 25 mg IM to help with intractable pain. Feel free to return to call and speak to hospice today to help manage pain. KATHARINA BLEDSOE Mar 12, 2022 06:37
[2022-03-12 09:05] VITALS: BP 130/77
== END 2022-03-12 09:05 | disposition home or self-care (01) ==
LOC: EDUNIT# 06:22 → ER 06:24
DX: G89.3 Neoplasm related pain (acute) (chronic) (principal); C34.90 Malignant neoplasm of unspecified part of unspecified bronchus or lung; C79.51 Secondary malignant neoplasm of bone; Z97.8 Presence of other specified devices
CPT/HCPCS: 99283

== ENCOUNTER 2022-03-24 21:18 | Emergency (ER) | payer SELFPAY ==
[~2022-03-24] VITALS: Ht 180.3 cm; Wt 82.0 kg
--- NOTE | 2022-03-24 21:33 | ED General ---
General Chief Complaint: General Problems/Pain Stated Complaint: GENERALIZED PAIN Source of Information: Patient Exam Limitations: No Limitations (NAYANA CHERY APRN) History of Present Illness Date Seen by Provider: Mar 24, 2022 Time Seen by Provider: 21:07 Initial Comments This is a 61-year-old male who is currently on hospice for palliative management of his metastatic bone cancer. He has been having intractable pain at home despite having a Dilaudid pump of 4 mg, 1 mg boluses, fentanyl 150 mcg patches, morphine oral, Ativan oral. He was just evaluated and treated this emergency department for intractable pain a few days ago. He received ketamine 25 mg IV and achieved good pain control. Family would like to go ahead and have him trial ketamine again. They discussed having this as an outpatient option however they could not get his physician to approve it. Would like to have him admitted for intractable pain if possible. He does have significant chronic pain in his right upper extremity however his mother states that he did fall yesterday and landed on his right side. No injury to head or neck. (NAYANA CHERY APRN) Allergies and Home Medications Allergies Coded Allergies: No Known Drug Allergies (Unverified , 02/28/22) Patient Home Medication List Home Medication List Reviewed: Yes (NAYANA CHERY APRN) Diazepam (Diazepam) 5 Mg Tablet, 5 MG PO HS, (Reported) Entered as Reported by: MAY RODRIGUEZ on 03/01/22 1548 Fentanyl (Fentanyl Patch 50 MCG) 50 Mcg/Hour Patch.td72, 50 MCG Q72HR, (Reported) Entered as Reported by: MAY RODRIGUEZ on 03/01/22 0916 Fentanyl (Fentanyl Patch 100 MCG) 100 Mcg/Hour Patch.td72, 100 MCG Q72H, (Reported) Entered as Reported by: MAY RODRIGUEZ on 03/01/22 0916 Hydromorphone HCl/Pf (Hydromorphone 50 mg/5 ml Vial) 10 Mg/Ml Vial, 0 MG IV PRN PRN for PAIN-SEE DOSE INSTRUCTIONS Prescribed by: MARJORIE SOUSA on 03/04/22 1343 Lorazepam (Lorazepam) 2 Mg/Ml Oral.conc, 2 MG PO 2-4hr, (Reported) Entered as Reported by: MAY RODRIGUEZ on 03/01/22 1548 Naloxegol Oxalate (Movantik) 25 Mg Tablet, 12.5 MG PO DAILY, (Reported) Entered as Reported by: MAY RODRIGUEZ on 03/01/221547 Ondansetron (Ondansetron Odt) 4 Mg Tab.rapdis, 4 MG SL Q6H PRN for NAUSEA/VOMITING, (Reported) Entered as Reported by: MAY RODRIGUEZ on 03/01/221547 Pantoprazole Sodium (Pantoprazole Sodium) 40 Mg Tablet.dr, 40 MG PO DAILY, (Reported) Entered as Reported by: MAY RODRIGUEZ on 03/01/221547 Tamsulosin HCl (Flomax) 0.4 Mg Cap, 0.4 MG PO BID, (Reported) Entered as Reported by: MAY RODRIGUEZ on 03/01/221547 Review of Systems Review of Systems Constitutional: see HPI Genitourinary: no symptoms reported Musculoskeletal: other (Pain in his right shoulder, arm, wrist.) Skin: no symptoms reported Psychiatric/Neurological: See HPI (NAYANA CHERY APRN) Past Hfsqzol-Hezvhr-Bootkh Hx Patient Social History Substance use?: No Alcohol Use?: No Pt feels they are or have been: No (NAYANA CHERY APRN) Immunizations Up To Date First/Initial COVID19 Vaccinat: N/A Second COVID19 Vaccination Magdi: N/A Third COVID19 Vaccination Date: N/A (NAYANA CHERY APRN) Past Medical History Surgery/Hospitalization HX: LUNG CANCER WITH METASTISIS TO BONE Lung Did You Recieve Any Treatments: Yes (NAYANA CHERY APRN) Family Medical History No Pertinent Family Hx (NAYANA CHERY APRN) Physical Exam Vital Signs Vital Signs - First Documented 03/24/22 21:24 Temp 36.8 Pulse 116 Resp 18 B/P (MAP) 191/120 (143) Pulse Ox 96 O2 Delivery Room Air (GRETA,LILLIAN K DO) Vital Signs Capillary Refill : (NAYANA CHERY VULCANIZER OPERATOR) Height, Weight, BMI Height: '" Weight: lbs. oz. kg; 25.22 BMI Method: General Appearance: No Apparent Distress, WD/WN, Chronically ill, Thin Eyes: Bilateral Eye Normal Inspection, Bilateral Eye PERRL, Bilateral Eye EOMI HEENT: PERRL/EOMI, Normal ENT Inspection, Pharynx Normal, Moist Mucous Membranes Neck: Full Range of Motion, Normal Inspection, Supple Respiratory: Lungs Clear, Normal Breath Sounds, No Accessory Muscle Use Cardiovascular: Regular Rate, Rhythm, No Edema Gastrointestinal: Normal Bowel Sounds, Non Tender, Soft Extremity: Normal Capillary Refill, Normal Inspection Neurologic/Psychiatric: Alert, Oriented x3, No Motor/Sensory Deficits, Normal Mood/Affect Skin: Normal Color, Warm/Dry (NAYANA CHERY APRN) Progress/Results/Core Measures Suspected Sepsis SIRS Temperature: Pulse: Respiratory Rate: Blood Pressure / Mean: (NAYANA CHERY APRN) Results/Orders Vital Signs/I&O 03/24/22 03/24/22 21:24 23:35 Temp 36.8 36.5 Pulse 116 121 Resp 18 28 B/P (MAP) 191/120 (143) 145/99 Pulse Ox 96 99 O2 Delivery Room Air Room Air (GRETALILLIAN Veronika DO) Vital Signs/I&O Capillary Refill : (NAYANA CHERY APRN) Progress Note : Progress Note Patient examined in no acute distress. Well narcotized. He has the appearance of a terminal restless patient. He was given Hydralazine 20 mg IV push as he was initially hypertensive and we did not want to increase his blood pressure with the use of ketamine. This is the only medication he has achieved good pain control with so we would like to go ahead and try this. He was given ketamine 25 mg IV over 15 minutes. He did achieve some additional pain relief from this medication. Required IV Ativan for restlessness. There are no hospital beds at this time I discussed with family talking to his primary care provider to see about admission tomorrow when hospital beds are open. They are agreeable with this plan. He was discharged home with family. (NAYANA CHERY APRN) Diagnostic Imaging Diagonstic Imaging: Xray Comments [facility], [place] NAME: NAY BRODYMarion Davila [facility] REC#: [id number] PT STATUS: REG ER : 1960 PHYSICIAN: NAYANA CHERY APRN ADMIT DATE: 03/24/22/ER Signed Date of Exam:03/24/22 FOREARM, RIGHT, 2 VIEWS INDICATION: Fall, history of bone cancer. EXAMINATION: Right forearm 03/24/2022 FINDINGS: 2 views of the forearm FINDINGS: There is no evidence for an acute fracture or dislocation. The joint spaces are well maintained. There is no significant soft tissue swelling. IMPRESSION: No acute process. Dictated by: Dictated on workstation # [id number] Dict: 03/24/[id number] Trans: 03/24/222241 CV [id number] Interpreted by: CHRIS ANTUNEZ MD Electronically signed by: CHRIS ANTUNEZ MD 03/24/222241 Diagonstic Imaging: Xray Comments [facility], [place] NAME: STACEY BRODY [facility] REC#: [id number] PT STATUS: REG ER : 1960 PHYSICIAN: NAYANA CHERY APRN ADMIT DATE: 03/24/22/ER Signed Date of Exam:03/24/22 HUMERUS, RIGHT, 2 VIEWS INDICATION: Fall history, bone carcinoma. History of pain. EXAMINATION: Right humerus 03/24/2022 FINDINGS: 2 views of the humerus. There are no fractures or dislocations within the humerus. The lytic lesion in the right scapula once again noted. IMPRESSION: 1. No acute process within the humerus. Dictated by: Dictated on workstation # [id number] Dict: 03/24/[id number] Trans: 03/24/222241 CVB [id number] Interpreted by: CHRIS ANTUNEZ MD Electronically signed by: CHRIS ANTUNEZ MD 03/24/222241 Diagonstic Imaging: Xray Comments [facility], [place] NAME: PATRICIASTACEY MONTALVO [facility] REC#: [id number] PT STATUS: REG ER : 1960 PHYSICIAN: NAYANA CHERY APRN ADMIT DATE: 03/24/22/ER Signed Date of Exam:03/24/22 SHOULDER, RIGHT, 3 VIEWS INDICATION: Fall, pain EXAMINATION: Right shoulder 03/24/2022 FINDINGS: 3 views of the shoulder. There is a lucency along the posterior border of the scapula suspicious for a lytic lesion. The remaining osseous structures appear intact. No dislocations or fractures appreciated. IMPRESSION: 1. Suspected lytic lesion along the posterior border of the scapula. No fractures appreciated. Dictated by: Dictated on workstation # [id number] Dict: 03/24/[id number] Trans: 03/24/222241 CV [id number] Interpreted by: CHRIS ANTUNEZ MD Electronically signed by: CHRIS ANTUNEZ MD 03/24/222241 (NAYANA CHERY VULCANIZER OPERATOR) Departure Impression Primary Impression: Inadequate pain control Additional Impression: Hypertension Disposition: HOME, SELF-CARE Condition: Stable Departure-Patient Inst. Decision time for Depature: 22:22 (NAYANA CHERY APRN) Referrals: NO,LOCAL PHYSICIAN (PCP/Family) Primary Care Physician Patient Instructions: High Blood Pressure ED, Chronic Pain (DC) Add. Discharge Instructions: Plan: 1. You will need to restart your blood pressure medication if your systolic BP (top number) is >140. 2. Please discuss having physician order Ketamine 25mg IM injections as he seems to gain good pain control with this additional modality. 3. Return for any new, concerning, or worsening symptoms. All discharge instructions reviewed with patient and/or family. Voiced understanding. ATTENDING PHYSICIAN NOTE: I WAS PHYSICALLY PRESENT ER PHYSICIAN, BUT I WAS NOT INVOLVED IN ANY DECISION MAKING OR ANY CARE OF THIS PATIENT. (LILLIAN HERNANDES DO) NAYANA CHERY APRN Mar 24, 2022 21:33 LILLIAN HERNANDES DO Mar 26, 2022 02:23
[2022-03-24] MEDS ORDERED: NS (IVPB) 250 ML IV ONE (22:00)
[2022-03-24] MEDS ORDERED: KETAMINE 50 MG/5 ML SYRINGE IV ONE (22:00)
[2022-03-24] MEDS ORDERED: hydrALAZINE (APESOLINE) 20 MG/ML VIAL IV ONE (22:00)
--- NOTE | 2022-03-24 22:01 | Diagnostic Imaging Report ---
INDICATION: Fall, history of bone cancer. EXAMINATION: Right forearm 03/24/2022 FINDINGS: 2 views of the forearm FINDINGS: There is no evidence for an acute fracture or dislocation. The joint spaces are well maintained. There is no significant soft tissue swelling. IMPRESSION: No acute process. Dictated by: Dictated on workstation # [id number]
--- NOTE | 2022-03-24 22:30 | Diagnostic Imaging Report ---
INDICATION: Fall, pain EXAMINATION: Right shoulder 03/24/2022 FINDINGS: 3 views of the shoulder. There is a lucency along the posterior border of the scapula suspicious for a lytic lesion. The remaining osseous structures appear intact. No dislocations or fractures appreciated. IMPRESSION: 1. Suspected lytic lesion along the posterior border of the scapula. No fractures appreciated. Dictated by: Dictated on workstation # [id number]
--- NOTE | 2022-03-24 22:30 | Diagnostic Imaging Report ---
INDICATION: Fall history, bone carcinoma. History of pain. EXAMINATION: Right humerus 03/24/2022 FINDINGS: 2 views of the humerus. There are no fractures or dislocations within the humerus. The lytic lesion in the right scapula once again noted. IMPRESSION: 1. No acute process within the humerus. Dictated by: Dictated on workstation # [id number]
[2022-03-24] MEDS ORDERED: LORazepam INJ 2 MG/ML (ATIVAN) VIAL IVP ONE (22:45)
[2022-03-24 23:35] VITALS: BP 145/99
== END 2022-03-24 23:35 | disposition home or self-care (01) ==
LOC: EDUNIT# 21:18 → ER 21:22
DX: I10 Essential (primary) hypertension (principal); R52 Pain, unspecified; Z28.310 Unvaccinated for COVID-19
CPT/HCPCS: 73030; 73060; 73090